=== PATIENT | female | born 1965 | race Caucasian/White ===

== ENCOUNTER 2023-12-24 18:57 | Emergency (ER) | payer SELFPAY ==
[~2023-12-24] VITALS: Ht 165.1 cm; Wt 127.2 kg
[~2023-12-24 18:57] MED LIST: ASPIRIN325 MG PO; HYDROCHLOROTHIA25 MG PO; IRON18 MG PO; LISINOPRIL40 MG PO; MELATONIN10 MG PO; NEURONTIN300 MG PO; OMEPRAZOLE20 MG PO; PROZAC40 MG PO; TYLENOL325 MG PO; VITAMIN B COMP1 EACH PO; VITAMIN D250 MCG PO
--- OUTSIDE RECORDS SUMMARY | 2023-12-24 19:00 | XMS ---
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 Elsa has no Care Guidelines for this patient. [place] VISIT COUNT (12 MO.) 1 KERVIN Lopez TOTAL 1 NOTE: Visits indicate total known visits. ED/C VISIT TRACKING (12 MO.) 12/24/2023 18:58 [facility]IN [place] TYPE: Emergency COMPLAINT: - FLU SYMPTOMS INPATIENT VISIT TRACKING (12 MO.) No inpatient visits to display in this time frame [email or web address]
[2023-12-24] MEDS ORDERED: FLUOXETINE HCL20 MG PO (19:29)
[2023-12-24] MEDS ORDERED: ACETAMINOPHEN 500 MG TAB PO ONE (20:00)
[2023-12-24] MEDS ORDERED: ALBUTEROL/IPRATROPIUM 3 ML NEB INH ONE (20:00)
[2023-12-24] MEDS ORDERED: ondansetron HCL 4 MG/2 ML VIAL IV ONE (20:00)
[2023-12-24] MEDS ORDERED: LACTATED RINGER'S 1,000 ML IV SCH (20:00)
[2023-12-24 20:18] LABS: BASOPHILS 0.4 % (0-2); EOSINOPHILS 0.2 % (0-6); HEMATOCRIT 36.3 % (35.0-50.0); HEMOGLOBIN 11.5 g/dL (12.0-18.0); LYMPHOCYTES 5.7 % (24-44); MCH 19.2 (27-36); MCHC 31.6 g/dl (30-36); MCV 60.7 fl (81-99); MONOCYTES 12.9 % (0-12); NEUTROPHILS 80.8 % (39-80); PLATELET COUNT 296 K/uL (140-440); RBC 5.98 M/ul (4.3-5.7); RDW 16.9 (10.5-15.0)
[2023-12-24 20:33] LABS: ALBUMIN 3.4 g/dL (3.4-5.0); ALBUMIN/GLOBULIN RATIO 0.83 (1.1-2.4); ANION GAP 12.6 (7-21); BILIRUBIN, TOTAL 0.4 ng/dL (0.2-1.0); BUN/CREATININE RATIO 13.33 (6.0-28.6); CALCIUM 8.8 mg/dL (8.5-10.1); CREATININE, SERUM 0.9 mg/dL (0.55-1.02); POTASSIUM 3.6 mmol/L (3.5-5.1); PROTEIN, TOTAL 7.5 g/dL (6.4-8.2)
[2023-12-24 20:36] LABS: LACTIC ACID, BLOOD 1.2 mmol/L (0.4-2.0)
[2023-12-24 20:38] LABS: INFLUENZA B NAA NEGATIVE (NEGATIVE); RESPIRATORY SYNCYTIAL VIR NAA NEGATIVE (NEGATIVE)
[2023-12-24] MEDS ORDERED: OSELTAMIVIR PHOSPHATE 75 MG HOME.PACK PO ONE (22:15)
[2023-12-24] MEDS ORDERED: ALBUTEROL SULFATE 8 GM HOME.PACK INH ONE (22:15)
[2023-12-24] MEDS ORDERED: INHALER, ASSIST DEVICES 1 EACH SPACER MISC ONE (22:15)
[2023-12-24 22:25] VITALS: BP 148/70
== END 2023-12-24 22:25 | disposition home or self-care (01) ==
LOC: ED 18:57
PROVIDERS: Internal Medicine
DX: J10.1 Influenza due to other identified influenza virus with other respiratory manifestations (principal); Z79.899 Other long term (current) drug therapy; Z79.82 Long term (current) use of aspirin
CPT/HCPCS: 36415; 71045; 80053; 83605; 85025; 85060; 87502; 94640; 94664; 96374; 99284-25; A9270; J2405; J7121; U0002